=== PATIENT | female | born 2005 | race Two or more races ===

== ENCOUNTER 2024-11-30 19:18 | Emergency (ER) | payer SELFPAY ==
--- NOTE | 2024-11-30 19:29 | ED.GENADULT ---
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 Admits she had a menstrual cycle with the beginning of October. Reports that she had been using the Nexplanon for control up until about 6 months ago when she had it removed. Evidently got while she had the Nexplanon in place and wanted to try a different form of control. Then went on an oral contraceptive pill for a couple of months which regulated her periods well but moved here to the [facility] from the [facility] and was unable to get another prescription for control. Has been continuously sexually active during this time. Describes some dyspareunia and vaginal bleeding. Has gone through 4 pads today. Also describes abdominal cramping. Denies associated nausea, vomiting, bowel changes, urinary complaints, fever, known sick contacts. Related Data Previous Rx's ?Medication ?Instructions ?Recorded estradiol-norethindrone acet 1 1 tab PO DAILY #84 tabs 11/30/24 mg-0.5 mg tablet (Alisha) Allergies Allergy/AdvReac Type Severity Reaction Status Date / Time No Known Allergies Allergy Verified 11/30/24 19:33 Review of Systems Review of Systems: as per HPI, full review of systems performed and negative but for the above mentioned pertinent positives and negatives. FORMERLY [facility], [facility] Social History Social History Advance Directives: No Advance Directives Information Provided: Yes Physical Exam ED Exam Exam: GENERAL: Well-Appearing, conversant, no acute distress. SKIN: Normal skin color for ethnicity, warm, dry, no rashes noted. HEENT: Normocephalic, atraumatic, no stridor, posterior oropharynx nonerythematous, dentition intact, EOMI. NECK: Soft, supple, full ROM, midline structures nontender, no step-offs, no deformities, no lymphadenopathy. CHEST: Heart regular rate and rhythm, no murmurs, symmetric chest rise and fall. PULMONARY: Clear to auscultation bilaterally, no labored breathing, no wheezes/rhales/rhonchi. ABDOMINAL: Soft, nondistended, suprapubic tenderness to palpation without guarding, positive bowel sounds in all quadrants. : Deferred. MUSCULOSKELETAL: Normal tone, full range of motion, no deformities, no peripheral edema. NEURO: Alert and oriented x3, CN II through XII intact, equal strength and sensation bilateral upper and lower extremities, no focal neurologic deficits. PSYCHIATRIC: Normal affect, fluid speech, good eye contact and appropriate demeanor. Vital Signs: Vital Signs - 24 hr 11/30/24 19:31 11/30/24 21:58 Temperature 97.7 F 98 F Pulse Rate 98 90 Respiratory Rate 20 18 Blood Pressure 136/68 128/68 Pulse Oximetry 100 100 Oxygen Delivery Method Room Air Room Air BMI result Body Mass Index 18.8 Course Course Course Narrative: Rapid medical examination performed in triage by Ansley Montano PA-C. Patient is a 19 year old assigned female at presenting to the emergency department with vaginal bleeding. Detailed physical exam and review of systems are deferred to the conference translator. Labs ordered. Patient placed back in the waiting room pending room availability and results. Medications Administered Discontinued Medications Generic Name Dose Route Start Last Admin Trade Name Mainorq PRN Reason Stop Dose Admin Ibuprofen 600 mg 11/30/24 23:08 11/30/24 23:38 Ibuprofen 600 Mg Tablet PO 11/30/24 23:09 600 mg ONCE ONE Administration Medical Decision Making Medical Decision Making [facility] Narrative: Patient presents today with chief complaint of vaginal bleeding. Differential diagnosis would include anemia, dysfunctional uterine bleeding, and if ectopic , threatened , missed , incomplete , among many others. Patient is not significantly anemic today. She is not . Suspect she is having another menstrual cycle which is actually only a couple of weeks late. Has been off of control for the last couple of months. Has no access to care. She is looking for health insurance and has not been able to sign up yet. She is hemodynamically stable with a benign abdominal exam today. I feel that she is stable for discharge to have her control prescription filled. She would like to use oral contraceptive pills. Provided with referral to primary care. Discharged in stable condition. Differential Diagnosis Differential Diagnoses: The differential diagnosis associated with the presentation includes (As above) Admission/Observation Consideration of admission/observation: Escalation of care including admission/observation considered Lab Data MDM Lab Attestation statement: I reviewed the patient's lab results. 11/30/24 19:45 11/30/24 19:45 Labs: Lab Results 11/30/24 11/30/24 11/30/24 Range/Units 19:45 21:36 22:16 WBC 5.2 (4.8-10.8) X10*3/uL RBC 4.26 (4.20-5.50) X10*6/uL Hgb 13.3 (12.0-16.0) g/dl Hct 37.7 (37.0-47.0) % MCV 88.5 (80.0-98.0) fL MCH 31.2 (27.0-33.0) pg MCHC 35.3 H (31.0-35.0) g/dl RDW 11.8 (11.0-16.0) % Plt Count 279 (160-400) X10*3/uL MPV 9.1 L (9.4-12.3) fL Immature Gran % (Auto) 0.2 (0.0-0.4) % Neut % (Auto) 40.2 L (45-73) % Lymph % (Auto) 47.0 H (20-40) % Morehouse % (Auto) 11.0 (2-11) % Eos % (Auto) 0.8 (0-4) % Baso % (Auto) 0.8 (0-2) % Lymph # (Auto) 2.4 (1.2-4.9) X10*3/uL Morehouse # (Auto) 0.6 (0.1-1.2) X10*3/uL Eos # (Auto) 0.0 (0.0-0.4) X10*3/uL Baso # (Auto) 0.0 (0.0-0.2) X10*3/uL Abs Immat Gran (auto) 0.01 (0.00-0.03) X10*3/uL Absolute Neuts (auto) 2.1 (2.0-8.3) x10*3/uL Absolute Nucleated RBC 0.000 (0.0-0.012) X10*3/uL Nucleated RBC % (auto) 0.0 (0.0-0.2) /100WBC PT 11.9 (10.9-12.4) SEC INR 1.0 (0.9-1.1) Sodium 140 (135-145) mmol/L Potassium 4.4 (3.3-5.1) mmol/L Chloride 107 (96-108) mmol/L Carbon Dioxide 25 (22-29) mmol/L Anion Gap 12 (12-20) BUN 10 (9-16) mg/dL Creatinine 0.75 (0.5-1.4) mg/dL Estim Creat Clear Calc 102.9 Estimated GFR > 60 Random Glucose 88 (60-115) mg/dL Calcium 9.9 (8.4-10.2) mg/dL Magnesium 2.0 (1.6-2.6) mg/dL Total Bilirubin 0.8 (0.0-1.0) mg/dL AST 25 (5-31) U/L ALT 30 (0-31) U/L Alkaline Phosphatase 60 (39-117) U/L Total Protein 7.6 (6.5-8.0) g/dL Albumin 4.9 (3.5-5.0) g/dL Beta HCG, Quant < 2 mIU/mL Urine Color Urine Appearance Urine pH (5.0-9.0) Ur Specific [place] (1.005-1.025) Urine Protein (Neg-Trace) mg/dL Urine Glucose (UA) (Negative) mg/dL Urine Ketones (Negative) mg/dL Urine Blood (Negative) Urine Nitrite (Negative) Ur Leukocyte Esterase (Negative) Urine RBC (0-2) /HPF Urine WBC (0-5) /HPF Ur Squamous Epith Cells (0-2) /HPF Urine Bacteria (None Seen) Hyaline Casts (0-2) /LPF Ur N gonorrhoeae DNA (PCR) NOT DETECTED (Not Detect.) Chlam trachomat DNA PCR Cancelled Ur Chlamydia DNA (PCR) DETECTED A (Not Detect.) COVID-19 (RIVAS) Negative (Negative) COVID-19 Clin Com See Note Influenza Type A (BARBARA) Negative (Negative) Influenza Type B (BARBARA) Negative (Negative) Influenza A & B Note See Note N.gonorrhoeae DNA (PCR) Cancelled T. vaginalis (PCR) NOT DETECTED (Not Detect) Bact vaginosis (PCR) NEGATIVE (Negative) C. krusei/glabrata (PCR) NOT DETECTED (Not Detect) Vanita group (PCR) NOT DETECTED (Not Detect) 11/30/24 Range/Units 22:19 WBC (4.8-10.8) X10*3/uL RBC (4.20-5.50) X10*6/uL Hgb (12.0-16.0) g/dl Hct (37.0-47.0) % MCV (80.0-98.0) fL MCH (27.0-33.0) pg MCHC (31.0-35.0) g/dl RDW (11.0-16.0) % Plt Count (160-400) X10*3/uL MPV (9.4-12.3) fL Immature Gran % (Auto) (0.0-0.4) % Neut % (Auto) (45-73) % Lymph % (Auto) (20-40) % Morehouse % (Auto) (2-11) % Eos % (Auto) (0-4) % Baso % (Auto) (0-2) % Lymph # (Auto) (1.2-4.9) X10*3/uL [place]house # (Auto) (0.1-1.2) X10*3/uL Eos # (Auto) (0.0-0.4) X10*3/uL Baso # (Auto) (0.0-0.2) X10*3/uL Abs Immat Gran (auto) (0.00-0.03) X10*3/uL Absolute Neuts (auto) (2.0-8.3) x10*3/uL Absolute Nucleated RBC (0.0-0.012) X10*3/uL Nucleated RBC % (auto) (0.0-0.2) /100WBC PT (10.9-12.4) SEC INR (0.9-1.1) Sodium (135-145) mmol/L Potassium (3.3-5.1) mmol/L Chloride (96-108) mmol/L Carbon Dioxide (22-29) mmol/L Anion Gap (12-20) BUN (9-16) mg/dL Creatinine (0.5-1.4) mg/dL Estim Creat Clear Calc Estimated GFR Random Glucose (60-115) mg/dL Calcium (8.4-10.2) mg/dL Magnesium (1.6-2.6) mg/dL Total Bilirubin (0.0-1.0) mg/dL AST (5-31) U/L ALT (0-31) U/L Alkaline Phosphatase (39-117) U/L Total Protein (6.5-8.0) g/dL Albumin (3.5-5.0) g/dL Beta HCG, Quant mIU/mL Urine Color Yellow Urine Appearance Clear Urine pH 6.0 (5.0-9.0) Ur Specific [place] 1.025 (1.005-1.025) Urine Protein Trace (Neg-Trace) mg/dL Urine Glucose (UA) Negative (Negative) mg/dL Urine Ketones Trace (Negative) mg/dL Urine Blood Large (3+) H (Negative) Urine Nitrite Negative (Negative) Ur Leukocyte Esterase Negative (Negative) Urine RBC 6-10 H (0-2) /HPF Urine WBC 0-5 (0-5) /HPF Ur Squamous Epith Cells 0-2 (0-2) /HPF Urine Bacteria None Seen (None Seen) Hyaline Casts 0-2 (0-2) /LPF Ur N gonorrhoeae DNA (PCR) (Not Detect.) Chlam trachomat DNA PCR Ur Chlamydia DNA (PCR) (Not Detect.) COVID-19 (RIVAS) (Negative) COVID-19 Clin Com Influenza Type A (BARBARA) (Negative) Influenza Type B (BARBARA) (Negative) Influenza A & B Note N.gonorrhoeae DNA (PCR) T. vaginalis (PCR) (Not Detect) Bact vaginosis (PCR) (Negative) C. krusei/glabrata (PCR) (Not Detect) Vanita group (PCR) (Not Detect) Independent Historian Clinical information obtained from an independent historian. History obtained from or confirmed by: Friend Prescription Management I considered prescription management with: Other (Oral contraceptives) Social Determinants Patient?s care significantly limited by Social Determinants of Health including: Other Social Determinant of Health Discharge Plan Discharge Clinical Impression: Menometrorrhagia, Dyspareunia in female Patient Disposition: Home, Self-Care Instructions: Menorrhagia (ED), Dyspareunia in Women (DC) Additional Instructions: https://www.[employer].gov/how-to/fdzpx-wdj-ymevpfzute-rzw-ocevjg-rsvzbm-zbm-wl-vff-rxytonfsm-powtaum-mgkpxszg-plan Go to this website in order to find out if you can apply for [employer]. This is the health insurance for the [facility]. I am sending a prescription for control pills to the pharmacy. Please be aware that until you are taking this medication for at least 2 months, you can still get . You can get while you are menstruating. The only way to achieve adequate control is to use another form of protection, such as condoms. Return to the emergency department with any new or worsening symptoms including: Worsening abdominal pain or vaginal bleeding, fevers greater than 100?, inability to tolerate food or drink, any new symptom that concerns you. Prescriptions: New estradiol-norethindrone acet [Alisha] 1-0.5 mg tablet 1 tab PO DAILY Qty: 84 0RF Interventions: ED Discharge Assessment Last Done: 11/30/24 23:41 Discharge Date/Time: 11/30/24 23:41 Print Language: Estonian
[2024-11-30 19:31] VITALS: BP 136/68; PULSE 98; RESP 20; TEMP 36.5; O2SAT 100; BMI 18.8
[2024-11-30 19:49] LABS: MANUAL DIFF FLAG NO
[2024-11-30 19:50] LABS: Hematocrit 37.7 % (37.0-47.0); Hemoglobin 13.3 g/dl (12.0-16.0); Imm Gran Abs Auto 0.01 X10*3/uL (0.00-0.03); Imm Gran Pct Auto 0.2 % (0.0-0.4); Lymphocytes Absolute Auto 2.4 X10*3/uL (1.2-4.9); Mean Corpuscular HGB Conc 35.3 g/dl (31.0-35.0); Mean Corpuscular Hemoglobin 31.2 pg (27.0-33.0); Mean Corpuscular Volume 88.5 fL (80.0-98.0); NRBC Abs Auto 0.000 X10*3/uL (0.0-0.012); NRBC Pct Auto 0.0 /100WBC (0.0-0.2); Platelet Count 279 X10*3/uL (160-400); Red Blood Count 4.26 X10*6/uL (4.20-5.50); White Blood Count 5.2 X10*3/uL (4.8-10.8)
[2024-11-30 19:55] LABS: INTERNATIONAL NORM RATIO 1.0 (0.9-1.1); Prothrombin Time 11.9 SEC (10.9-12.4)
[2024-11-30 20:11] LABS: Alanine Aminotransferase 30 U/L (0-31); Albumin Level 4.9 g/dL (3.5-5.0); Alkaline Phosphatase 60 U/L (39-117); Anion Gap 12 (12-20); Aspartate Amino Transferase 25 U/L (5-31); Blood Urea Nitrogen 10 mg/dL (9-16); Calcium 9.9 mg/dL (8.4-10.2); Carbon Dioxide 25 mmol/L (22-29); Chloride 107 mmol/L (96-108); Creatinine Clr Calc Pharmacy 102.9; Estimated Glomerular Filt Rate > 60; Magnesium 2.0 mg/dL (1.6-2.6); Potassium 4.4 mmol/L (3.3-5.1); Sodium 140 mmol/L (135-145); Total Protein 7.6 g/dL (6.5-8.0)
[2024-11-30 20:13] LABS: COVID-19 Test Negative (Negative); IDNOW Serial# 152EDE1D; IDNOW Serial# 16C4AD1C; Influenza B2 Negative (Negative)
[2024-11-30 21:58] VITALS: BP 128/68; PULSE 90; RESP 18; TEMP 36.6; O2SAT 100
[2024-11-30 22:28] LABS: Appearance Urine Clear; Glucose Urine UA Negative (Negative); PH 6.0 (5.0-9.0); Specific Gravity - Urine 1.025 (1.005-1.025); UMIC TRIGGER UACC YES
[2024-11-30 23:41] VITALS: BP 128/68; PULSE 90; RESP 18; TEMP 36.6; O2SAT 100
[2024-12-01 12:09] LABS: Bacterial Vaginosis PCR NEGATIVE (Negative); Candida Group PCR NOT DETECTED (Not Detect); Candida glab krusei PCR NOT DETECTED (Not Detect); Trichomonas vaginalis PCR NOT DETECTED (Not Detect)
[2024-12-01 12:41] LABS: CT PCR Urine DETECTED (Not Detect.); NG PCR Urine NOT DETECTED (Not Detect.)
== END 2024-11-30 23:41 | disposition home or self-care (01) ==
PROVIDERS: Physician Assistant Medical; Emergency Provider Emergency Medicine
DX: R25.2 Cramp and spasm (principal); N92.1 Excessive and frequent menstruation with irregular cycle; N94.10 Unspecified dyspareunia; R10.2 Pelvic and perineal pain; Z11.52 Encounter for screening for COVID-19; Z79.899 Other long term (current) drug therapy
CPT/HCPCS: 36415; 80053; 81001; 81515; 83735; 84702; 85025; 85610; 87491; 87502; 87591; 87635; 99283